=== PATIENT | female | born 1980 | race Caucasian/White ===

== ENCOUNTER 2016-08-02 15:11 | Emergency (ER) | payer OTHER ==
[~2016-08-02] VITALS: Ht 167.6 cm; Wt 122.5 kg
[2016-08-02 15:16] VITALS: BP 148/84
[2016-08-02] MEDS ORDERED: methylPREDNISolone SS 125 MG/2 ML VIAL IVP ONE (15:30)
[2016-08-02] MEDS ORDERED: RACEPINEPHRINE 2.25% 13.5 MG/0.5 ML NEBU INH ONE (15:30)
[2016-08-02] MEDS ORDERED: MAG SULF 2000 MG/WATER PREMIX 50 ML IV ONE (15:30)
--- NOTE | 2016-08-02 15:30 | NUR ---
PT BIBA FROM REHAB FACILITY FOR C/O SOB. HX ASTHMA, PANCREATITIS, SUBSTANCE ABUSE CURRENTLY IN REHAB. RECENT HOSPITALIZATION FOR ASTHMA EXACERBATION. DENIES N/V/D; SKIN IS PINK/WARM/DRY; AAOX4 WITH EVEN AND STEADY GAIT; PT DENIES ANY FEVER AT THIS TIME; PATIENT STATES PAIN OF 0/10 AT THIS TIME; PATIENT POSITIONED FOR COMFORT; HOB ELEVATED; BEDRAILS UP X2; BED DOWN.ALL MONITORS IN PLACED.
[2016-08-02] MEDS ORDERED: AZIT250C11 PO (15:31)
[2016-08-02] MEDS ORDERED: PRED20TA5 PO (15:31)
[2016-08-02] MEDS ORDERED: BECL0.089 INH (15:31)
[2016-08-02] MEDS ORDERED: HYDR-2912 PO (15:31)
[2016-08-02] MEDS ORDERED: [UNRECOGNIZED DRUG - CODE] NS (15:31)
[2016-08-02] MEDS ORDERED: HAB14T TOP (15:31)
[2016-08-02] MEDS ORDERED: MONT10TA35 PO (15:31)
[2016-08-02] MEDS ORDERED: ALBU3SOL49 INH (15:31)
[2016-08-02 15:57] LABS: BASOPHILS # (AUTO) 0.1 K/uL (0.00-0.22); BASOPHILS % (AUTO) 0.7 % (0.0-2.0); EOSINOPHILS # (AUTO) 0.1 K/uL (0-0.4); EOSINOPHILS % (AUTO) 1.1 % (0.0-4.0); HEMOGLOBIN 14.3 g/dL (12.0-16.0); LYMPHOCYTES # (AUTO) 0.4 K/uL (2.5-16.5); LYMPHOCYTES % (AUTO) 5.6 % (20.5-51.1); MEAN CORPUSCULAR HEMOGLOBIN 29 pg (27-31); MEAN CORPUSCULAR HGB CONC 33 g/dL (33-37); MEAN CORPUSCULAR VOLUME 88 fL (80-94); MONOCYTES % (AUTO) 0.3 % (1.7-9.3); NEUTROPHILS # (AUTO) 7.1 K/uL (1.8-7.7); NEUTROPHILS % (AUTO) 92.3 % (42.2-75.2); PLATELET COUNT (AUTO) 192 K/uL (140-450); RED BLOOD CELL COUNT(AUTO) 4.91 MIL/uL (4.20-5.40); RED CELL DISTRIBUTION WIDTH 13.9 % (11.6-13.7); WHITE BLOOD COUNT (AUTO) 7.7 K/uL (4.8-10.8)
--- NOTE | 2016-08-02 16:02 | NUR ---
cartography/mapping technician at bedside for CXR.
[2016-08-02 16:04] LABS: BLOOD GAS BASE EXCESS -2.9 mmol/L (-2.0-2.0); BLOOD GAS HCO3 16.1 mmol/L; BLOOD GAS O2 SAT% 99.2 % (92.0-98.5); BLOOD GAS PO2 152.4 mmHg
[2016-08-02] MEDS ORDERED: LORazepam 2 MG/ML VIAL IVP ONE (16:05)
[2016-08-02 16:14] LABS: ANION GAP 16.3 (8-16); CALCIUM 8.8 mg/dL (8.5-10.1); CARBON DIOXIDE 23.8 mmol/L (21-32); CREATININE 1.1 mg/dL (0.6-1.3); POTASSIUM 3.1 mmol/L (3.5-5.1)
[2016-08-02 16:19] LABS: ALBUMIN 3.8 g/dL (3.4-5.0); TOTAL BILIRUBIN 0.3 mg/dL (0.0-1.0); TOTAL PROTEIN, SERUM 8.2 g/dL (6.4-8.2)
[2016-08-02 16:20] LABS: AMYLASE 54 U/L (25-115); LIPASE 272 U/L (73-393)
[2016-08-02] MEDS ORDERED: POTASSIUM CHLORIDE 10 MEQ TABER PO ONE (16:30)
--- NOTE | 2016-08-02 17:22 | NUR ---
PT RESTING ON BED;PT VERBALIZES "I'M FEELING BETTER";NO ACUTE DISTRESS NOTED;WILL CONTINUE TO MONITOR PT.
--- NOTE | 2016-08-02 17:31 | NUR ---
PT RELATIVE ASKED HOW TO REPORT A MOLD;BECUASE THEY ARE SUSPECTING THAT IS WHERE THE PT GOT IT'S ASTHMA;
--- NOTE | 2016-08-02 18:16 | NUR ---
ER MD AT BEDSIDE;PT RESTING ON BED;NO ACUTE DISTRESS NOTED;WILL CONTIUE TPO MONITOR PT.
--- NOTE | 2016-08-02 18:44 | NUR ---
Patient discharged with v/s stable. Written and verbal after care instructions given and explained. Patient verbalized understanding. Ambulatory with steady gait. All questions addressed prior to discharge. Advised to follow up with PMD.
[2016-08-02 18:46] VITALS: BP 128/71
== END 2016-08-02 18:44 | disposition home or self-care (01) ==
LOC: MED 15:11
DX: J45.901 Unspecified asthma with (acute) exacerbation (principal); Z79.899 Other long term (current) drug therapy
CPT/HCPCS: 36415; 36600; 71010; 80053; 82150; 82803; 83690; 85025; 94640; 96365; 96366; 96375; 99285; J2060; J2930; J3475; Q0092